=== PATIENT | male | born 1990 | race Two or more races ===

== ENCOUNTER 2023-02-10 12:55 | Emergency (ER) | payer BC, OTHER ==
[2023-02-10 13:26] VITALS: BP 135/88; PULSE 89; RESP 20; TEMP 98.4; BMI 30.7
[2023-02-10] MEDS ORDERED: ONDANSETRON *ODT* 4 MG TABLET SL ONE (16:28)
[2023-02-10] MEDS ORDERED: MAG HYDROX/AL HYDROX/SIMETH -MYLANTA- ORAL SUSPENSION PO ONE (16:28)
[2023-02-10] MEDS ORDERED: FAMOTIDINE 20 MG TABLET PO ONE (16:28)
[2023-02-10] MEDS ORDERED: ONDANSETRON *ODT* 4 MG TABLET ONE (16:37)
[2023-02-10] MEDS ORDERED: FAMOTIDINE 20 MG TABLET ONE (16:37)
[2023-02-10] MEDS ORDERED: MAG HYDROX/AL HYDROX/SIMETH 30 ML UNIT-DOSE CUP ONE (16:38)
== END 2023-02-10 17:23 | disposition home or self-care (01) ==
LOC: JER 12:55 → JERFT 12:55
DX: R50.9 Fever, unspecified (principal); R11.2 Nausea with vomiting, unspecified; R12 Heartburn; Z20.822 Contact with and (suspected) exposure to COVID-19
CPT/HCPCS: 0241U-QW; 99283-25; Q0162